=== PATIENT | male | born 1965 | race Caucasian/White ===

== ENCOUNTER 2023-04-27 09:09 | Outpatient (OUT) | payer OTHER, SELFPAY ==
--- NOTE | 2023-04-27 09:12 | CT_ITS ---
The [address] [address] Patient Name: CHRISTOPHER ONEAL MRN: [id number] date: 1965 Sex: M Assigned Patient Location: CT Current Patient Location: Accession/Order Number: [id number] Exam Date: 04/27/2023 09:45 Report Date: 04/28/2023 00:35 At the request of: KASSIDY LI Procedure: CT shoulder RT wo con EXAMINATION: CT shoulder RT wo con HISTORY: Polymyalgia Rheumatica M35.3 ; chronic posterior right shoulder pain COMPARISON: No relevant comparison available. TECHNIQUE: Multi-planar CT images were created without and/or with IV contrast according to examination type. Dose reduction techniques were achieved by using automated exposure control and/or adjustment of mA and/or kV according to patient size and/or use of iterative reconstruction technique. FINDINGS: BONES: Normal. No significant arthropathy or acute abnormality. SOFT TISSUES: Negative. No visible soft tissue swelling. EFFUSION: None visible. OTHER: Negative. CT/CT shoulder RT wo con IMPRESSION: 1. No abnormal or suspicious findings to account for patient's symptoms. Electronically authenticated by: CASSIE LACY Date: 04/28/2023 00:35
--- NOTE | 2023-04-27 09:13 | CT_ITS ---
[address] [address] Patient Name: CHRISTOPHER ONEAL MRN: [id number] date: 1965 Sex: M Assigned Patient Location: CT Current Patient Location: CT Accession/Order Number: [id number] Exam Date: 04/27/2023 09:45 Report Date: 04/27/2023 16:27 At the request of: KASSIDY LI Procedure: CT cervical spine wo con EXAM: CT cervical spine without contrast, 04/27/2023. HISTORY: Neck pain. Right shoulder pain. COMPARISON: None. TECHNIQUE: Noncontrast axial CT images obtained through the cervical spine. Reconstructions were obtained in the sagittal and coronal planes. Dose reduction techniques were achieved by using automated exposure control and/or adjustment of mA and/or kV according to patient size and/or use of iterative reconstruction technique. FINDINGS: Normal alignment. 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 No evidence of fractures. No suspicious osseous lesions. C2-3, there is developmental fusion of the C2 and C3 vertebrae. There is no significant spinal stenosis or foraminal narrowing. C3-4, disc space is normal in height. Moderate facet arthropathy on the left. Mild facet arthropathy on the right. Mild disc bulge. No significant spinal stenosis. There is severe foraminal narrowing bilaterally. C4-5, severe facet arthropathy on the right and moderate facet arthropathy on the left. The disc space is normal in height. Mild spinal canal stenosis. Moderate bilateral foraminal narrowing. C5-6, the disc space is normal in height. There is a shallow broad-based right paracentral protrusion with mild spinal stenosis on the right side of the spinal canal. Mild bilateral foraminal narrowing. C6-7, no spinal stenosis or significant neural foraminal narrowing. C7-T1, no spinal stenosis or foraminal narrowing. No paraspinal soft tissue swelling. No paraspinal mass. CT/CT cervical spine wo con IMPRESSION: 1. At C5-6, there is a shallow broad-based right paracentral protrusion resulting in mild spinal stenosis or right side of the spinal canal. Mild foraminal narrowing bilaterally. 2. At C4-5, there are severe facet arthropathy on the right and moderate facet arthropathy on the left. Mild spinal canal stenosis. Moderate bilateral foraminal narrowing. 3. At C3-4, there is severe bilateral neural foraminal narrowing. Electronically authenticated by: MARÍA ELENA HEARN Date: 04/27/2023 16:27
== END 2023-04-27 09:10 | disposition home or self-care (01) ==
LOC: CT 09:09
PROVIDERS: PCP Family Medicine; Visit Provider Nurse Practitioner Family
DX: M35.3 Polymyalgia rheumatica (principal); M25.511 Pain in right shoulder; M54.2 Cervicalgia
CPT/HCPCS: 72125; 73200

== ENCOUNTER 2023-06-26 14:14 | Outpatient (OUT) | payer OTHER, SELFPAY ==
--- NOTE | 2023-06-26 | CONS_ITS ---
CONSULTATION DATE: 06/26/2023 TO: Alma Rosa Gutierrez M.D. CHIEF COMPLAINT: Includes right shoulder pain, right upper back pain. HISTORY: Overall, rates the pain to be between 0-7/10 pain, described as sharp, intermittent pain, increased with activities such as lifting maneuvers, pushing/pulling maneuvers. Denies any change in bowel and bladder habits or new sensorimotor changes in the upper or lower extremities. Currently takes no medications and reports currently his pain has been under control over the last several weeks. He is currently in physical therapy, has tried a Medrol Dosepak. EXAM: His examination is notable for patient having mild hypoesthesia along the right C4 dermatome, mild weakness to right shoulder shrug. Patient also had dysesthesia and hyperesthesia along the distribution of the right T5 dermatome with significant myofascial spasm of the right thoracic iliocostalis muscle. IMPRESSION: Our impression is patient appears to have chronic pain, which appears to be stable at the current time, secondary to right T5 thoracic neuritis which is stable, right C4 radiculopathy also which is stable, secondary to possible C3-4 displaced disc. RECOMMENDATIONS: I recommend continuation of physical therapy and in the future to consider baclofen. At this current time, I recommend no interventions, and for the patient to return to our office on an as needed basis. As part of providing excellent, safe, comprehensive care, the following was completed at our patient's visit: 1. A medication reconciliation and review to ensure accurate knowledge of current/active medications, including asking our patients to inform us about any [id number] medications or herbal remedies/nutritional supplements/alternative remedies. 2. A review to specifically ensure our patients have had annual screening for: elevated body mass index (BMI, see intake chart for exact total), tobacco use, screening for depression, and screening for unhealthy alcohol use. When screening is concerning, patients are provided with education and the specific recommendation to discuss the concerning health issue and treatment options with their primary care provider. JUNIOR
--- OUTSIDE RECORDS SUMMARY | 2023-06-26 14:34 | XMS_ITS | CCD ---
Author Name Unknown Address [address] [facility] [facility] [address] [place] [address] Organization [facility] Care Team Providers Care Customer Experience Specialist Name Role Phone Dora Pino Unavailable MD Alma Rosa Gutierrez Primary Care Provider LUCY Lepe Attending Provider Beverly Lepe Unavailable Beverly Lepe Attending Unavailable Beverly Lepe Admitting Unavailable Alma Rosa Gutierrez Primary Care Unavailable Alma Rosa Gutierrez MD Primary Care Provider ROBYN LA Attending Unavailable BEVERLY LEPE Referring Unavailable ROBYN LA Attending Unavailable BEVERLY LEPE Referring Unavailable KASSIDY LI Attending Unavailable Allergies Allergy Classification Reported Allergen(s) Allergy Type Date of Onset Reaction(s) Facility (3 sources) Sulfacetamide Sod-Sulfur Drug allergy [facility] Other (3 sources) Sulfanilamide Allergy to substance 3 Unknown [facility] Work Phone: Medications Current Medications Medication Drug Class(es) Dates Sig (Normalized) Sig (Original) lidocaine 0.05 mg/mg medicated patch (2 sources) Antiarrhythmic, Amide Local Anesthetic Start: 06-06-2023 Lidocaine 5 % 1 patch remove after 12 hours Externally Once a day for May, Active predniSONE 10 mg oral tablet (2 sources) Start: 06-06-2023 predniSONE 10 MG Take 3 tablets by mouth for 3 days then 2 tablets by mouth for 3 days then 1 tablet by mouth for 3 days Orally Once a day for May, Active Problems Active Problems Problem Classification Problem Date Documented Da te Episodic/Chronic Other connective tissue disease (3 sources) Polymyalgia rheumatica; Translations: [Polymyalgia rheumatica] Onset: 11-19-2022 11-19-2022 Chronic Other nervous system disorders (2 sources) Chronic pain; Translations: [Other chronic pain] Chronic Other nervous system disorders (2 sources) Other chronic pain Chronic Other non-traumatic joint disorders (2 sources) Pain in right shoulder Episodic Spondylosis; intervertebral disc disorders; other back problems (5 sources) Cervical spondylosis; Translations: [Spondylosis without myelopathy or radiculopathy, cervical region] Chronic Spondylosis; intervertebral disc disorders; other back problems (9 sources) Backache; Translations: [Dorsalgia, unspecified] Onset: 06-06-2023 Episodic Past or Other Problems Problem Classification Problem Date Documented Da te Episodic/Chronic Other connective tissue disease (3 sources) Dupuytren's contracture; Translations: [Palmar fascial fibromatosis [Dupuytren]] Onset: 11-19-2022 11-19-2022 Episodic Unclassified (1 source) Contact with and (suspected) exposure to covid-19; Translations: [Contact with and (suspected) exposure to covid-19] Unclassified (1 source) Contact with and (suspected) exposure to covid-19 Z20.822 Unclassified (2 sources) Exposure to acute respiratory syndrome coronavirus 2; Translations: [Contact with and (suspected) exposure to covid-19] Results Test Name Value Interpretation Reference Range Facil ity XR thoracic spine 3V*on 05-09 XR thoracic spine 3V* [facility] [employer] Other XR thoracic spine 3V* [facility] [employer] Other XR thoracic spine 3V* [address] [facility] [employer] Other XR thoracic spine 3V* [place] [address] [employer] Other XR thoracic spine 3V* XRay Report [employer] Other XR thoracic spine 3V* Signed [employer] Other XR thoracic spine 3V* Patient: Laci Vásquez JR MR#: [id number] [employer] Other XR thoracic spine 3V* 93 [employer] Other XR thoracic spine 3V* : 1965 Acct:[id number] [employer] Other XR thoracic spine 3V* Age/Sex: 58 / M ADM Date: 06/06/23 [employer] Other XR thoracic spine 3V* Loc: XD [facility]: [facility] [employer] Other XR thoracic spine 3V* Attending Dr: Beverly AYALA [employer] Other XR thoracic spine 3V* Copies to: LUCY Stroud [employer] Other XR thoracic spine 3V* Ordering Provider: LUCY Stroud [employer] Other XR thoracic spine 3V* Date of Service: 06/06/23 [employer] Other XR thoracic spine 3V* XR/XR cerv spine AP/LAT/FLX/EXT: M47.812, [employer] Other XR thoracic spine 3V* ([id number]) XR/XR thoracic spine 3V*: M54.6 [employer] Other XR thoracic spine 3V* CERVICAL SPINE 4 views, thoracic spine 3 views: [employer] Other XR thoracic spine 3V* CLINICAL HISTORY: Loss of strength in right arm. Posterior right shoulder pain. [employer] Other XR thoracic spine 3V* COMPARISON: None [employer] Other XR thoracic spine 3V* FINDINGS: [employer] Other XR thoracic spine 3V* Cervical spine: Vertebral body disc space heights appear maintained. Facet joint degenerative [employer] Other XR thoracic spine 3V* changes. No pathological motion on flexion or extension views. No prevertebral soft tissue swelling. [employer] Other XR thoracic spine 3V* Thoracic spine: Vertebral body heights appear maintained. Minimal endplate degenerative change. No [employer] Other XR thoracic spine 3V* significant disc height loss. Pedicles appear intact. [employer] Other XR thoracic spine 3V* XR/XR cerv spine AP/LAT/FLX/EXT [employer] Other XR thoracic spine 3V* IMPRESSION: [employer] Other XR thoracic spine 3V* DEGENERATIVE CHANGES INVOLVING THE CERVICAL AND THORACIC SPINES WITHOUT ACUTE BONY PROCESS. [employer] Other XR thoracic spine 3V* Impression dictated by: Irving Knowles Jr., D.O.06/06/2023 10:39 AM [employer] Other XR thoracic spine 3V* Dictation Location: [place] [address] [employer] Other XR thoracic spine 3V* Transcribed By: PWS 06/06/23 1039 [employer] Other XR thoracic spine 3V* Dictated By: Irving Knowles Jr, DO 06/06/23 1037 [employer] Other XR thoracic spine 3V* Signed By: [employer] Other XR thoracic spine 3V* 06/06/23 1039 [employer] Other XR thoracic spine 3V* [facility] [place] [address] [place] [address] XRay Report Signed Patient: Laci Vásquez JR MR#: [id number] 93 : 1965 Acct:[id number] Age/Sex: 58 / M ADM Date: 06/06/23 Loc: XD Room: Type: [facility] Attending Dr: Beverly TOLBERTC Copies to: LUCY Stroud Ordering Provider: LUCY Stroud Date of Service: 06/06/23 XR/XR cerv spine AP/LAT/FLX/EXT: M47.812, ([id number]) XR/XR thoracic spine 3V*: M54.6 CERVICAL SPINE 4 views, thoracic spine 3 views: CLINICAL HISTORY: Loss of strength in right arm. Posterior right shoulder pain. COMPARISON: None FINDINGS: Cervical spine: Vertebral body disc space heights appear maintained. Facet joint degenerative changes. No pathological motion on flexion or extension views. No prevertebral soft tissue swelling. Thoracic spine: Vertebral body heights appear maintained. Minimal endplate degenerative change. No significant disc height loss. Pedicles appear intact. XR/XR cerv spine AP/LAT/FLX/EXT IMPRESSION: DEGENERATIVE CHANGES INVOLVING THE CERVICAL AND THORACIC SPINES WITHOUT ACUTE BONY PROCESS. Impression dictated by: Irving Knowles Jr., D.O.06/06/2023 10:39 AM Dictation Location: [place] [address] Transcribed By: [facility] 06/06/23 1039 Dictated By: Irving Knowles Jr, DO 06/06/23 1037 Signed By: 06/06/23 1039 [facility] SARS-CoV-2 (COVID-19) RNA NA A+probe Ql (Resp)on 02-05-2022 SARS-CoV-2 (COVID-19) RNA REINA+probe Ql (Unsp spec) Negative [employer] Other Vital Signs Date Time Vital Sign Value Performing Clinician Faci lity 06-06-2023 08:40-0500 Body height 175.26 cm Beverly Lepe Other [facility] 06-06-2023 08:40-0500 Body mass index (BMI) [Ratio] 25.25 kg/m2 Bevrely Lepe Other [employer] Other 06-06-2023 08:40-0500 Body weight 77.57 kg Beverly Lepe Other [employer] Other 06-06-2023 08:40-0500 Body weight 77.56 kg MD Alma Rosa Gutierrez Work Phone: [facility] Encounters Encounter Date Encounter Type Care Provider Facility Start: 06-25-2023 End: 06-25-2023 ambulatory MD Alma Rosa Gutierrez Work Phone: [facility] Work Phone: Start: 06-25-2023 End: 06-25-2023 Patient encounter procedure MD Alma Rosa Gutierrez Work Phone: [facility] [place] Work Phone: Start: 06-21-2023 End: 06-21-2023 ambulatory ROBYN LA Not Available Start: 06-21-2023 Bamboo flowsheet Robyn Morrell Pito kston PT Work Phone: [facility] Start: 06-21-2023 Bamboo flowsheet Robyn Morrell Pito kston PT Work Phone: [facility] Start: 06-19-2023 End: 06-20-2023 ambulatory ROBYN LA Not Available Start: 06-19-2023 End: 06-20-2023 ambulatory Robyn La PT Work Phone: [facility] Comment on above: Spondylosis without myelopathy or radiculopathy, cervical region (Primary Dx) Start: 06-19-2023 Bamboo flowsheet Robyn Morrell Pito kston PT Work Phone: [facility] Start: 06-19-2023 Bamboo flowsheet Robyn Morrell Pito kston PT Work Phone: [facility] Start: 06-06-2023 Office outpatient ne w 45 minutes Beverly Lepe [facility] Start: 06-06-2023 End: 06-06-2023 ambulatory Beverly Lepe Facility:[facility] Start: 06-06-2023 End: 06-06-2023 ambulatory MD Alma Rosa Gutierrez Work Phone: [facility] Work Phone: Start: 06-06-2023 End: 06-06-2023 Patient encounter procedure MD Alma Rosa Gutierrez Work Phone: [facility] Work Phone: Start: 06-06-2023 End: 06-06-2023 Patient encounter procedure MD Alma Rosa Gutierrez Work Phone: [facility]- Start: 04-19-2023 End: 04-19-2023 ambulatory KASSIDY LI Not Available Start: 01-29-2023 Patient encounter status Robyn La PT Work Phone: [facility] Work Phone: Start: 02-05-2022 End: 02-05-2022 ambulatory Dora Pino Other [employer] Other Start: 02-05-2022 Nursing evaluation o f patient and report Dora Pino [facility] [place] Procedures Date Procedure Procedure Detail Performing Clinician Start: 06-06-2023 Radiography of thora cic spine MD Alma Rosa Gutierrez Work Phone: Start: 06-06-2023 X-ray of cervical spine MD Alma Rosa Gutierrez Work Phone: Start: 03-02-2014 Colonoscopy Robyn linn PT Work Phone: Plan of Treatment Date Care Activity Detail Author Start: 03-02-2024 Screening for malign ant neoplasm of colon [facility] Start: 01-14-2024 End: 01-14-2024 Patient encounter procedure 01/14/2024 8:30 AM EDT Office Visit [facility] [address] [place] [address] Adeola España APRN-PARTNER [address] [place] [address] [facility] Start: 11-04-2023 Influenza vaccination Influenza Vacc ine (#1) [facility] Comment on above: Postponed from 01/05 (Patient Refused) Start: 07-05-2023 End: 07-05-2023 ambulatory [facility] Start: 07-02-2023 End: 07-02-2023 ambulatory 07/02/2023 3:30 PM EST Treatment [facility] [address] [place] [address] Delaney Harris, OVERLOCK WAISTLINE JOINER [facility] Start: 06-28-2023 End: 06-28-2023 ambulatory 06/28/2023 3:30 PM EST Treatment [facility] [address] [place] [address] Jorge Rodney, OVERLOCK WAISTLINE JOINER [facility] Start: 06-25-2023 MR Cervical spine WO contrast [facility] Start: 06-25-2023 MRI of cervical spin e without contrast MR cervical spine wo con [facility] Start: 06-21-2023 End: 06-21-2023 ambulatory [facility] Comment on above: Arrived Start: 06-19-2023 End: 06-19-2023 ambulatory 06/19/2023 3:30 PM EST Evaluation [facility] [address] [facility] [address] [place] [address] Robyn La, PT [address] [place] [address] Arrived [facility] Comment on above: Arrived Start: 1965 Screening for malign ant neoplasm of colon [facility] Payers Date Payer Category Payer Self-pay [id number] 2023 Unknown [employer] [id number] 2023-Present [phone] [address] [address] [place] [address] [id number] 2022 Unknown [id number] 1965 Unknown [id number] 58 1965 Unknown [id number] 58 1965 Unknown [id number] 58 Unknown [id number] Unknown [id number] 1 Social History Date Type Detail Facility Unknown if ever smoked [employer] Other Start: 01-23-2023 End: 04-18-2023 Sex Assigned At [facility] Start: 1965 Sex Assigned At Male [facility] Start: 11-20-2022 Tobacco smoking status [facility] Never smoked tobacco [facility] Work Phone: Start: 11-20-2022 Tobacco use and exposure Smokeless tobacco non-user [facility] Start: 04-19-2023 Alcohol intake Lifetime non-drinker (finding) [facility] Start: 01-23-2023 End: 04-18-2023 History of Social function [facility] Within the last year , have you been afraid of your partner or ex-partner? No [facility] Do you belong to any clubs or organizations such as caodaism groups, unions, fraternal or athletic groups, or school groups? Patient refused [facility] Are you now , , , , never or living with a partner? [facility] How often to you hav e a drink containing alcohol? Never [facility] Do you feel stress - tense, restless, nervous, or anxious, or unable to sleep at night because your mind is troubled all the time - these days [OSQ] Not at all [facility] (I/We) worried wheth er (my/our) food would run out before (I/we) got money to buy more. Never true [facility] Start: 11-20-2022 Alcohol Comment Caffeine intake : soda / coffee [facility] Start: 10-04-2022 Gender identity Identifies as male gender (finding) [facility] Start: 10-04-2022 Sexual orientation Heterosexual (finding) [facility] History of Present illness Narrative 06-19-2023 Robyn La, PT - 06/19/2023 3:30 PM EST Note Date & Type Note Facility 06-19-2023 History of Presen t illness Narrative Physical Therapy Physical Therapy Evaluation Visit Patient Name: Laci Vásquez Today's Date: 06/19/2023 Encounter Diagnoses Name Primary? Spondylosis without myelopathy or radiculopathy, cervical region Yes Visit number: 1 Supervised Time: 50 minutes Total Time: 50 minutes History: Pt. Presents to PT with c/c right scapular pain. In 2009 patient felt a pop in scapular muscle and continued to have on/off pain. Since patient has tried PT 2x, massage treatment, chiropractor which has not help. No injections. Denies N/T in UE. Pt. Reports everybody is saying it is coming from his neck but he has no neck pain. Pain is at his scapula border and under his scapula. Pain limits is functional mobility and is unable to workout. X-ray in patient chart. Will have MRI on 06/25/23. Pt. Has pain management appointment tomorrow. Precautions: as tolerated Subjective/Pain: 1-2/10 agitation pain Objective: PT Evaluation (06/19/23) Neck ROM: flexion normal, extension 25% limited, right rotation 50 deg, left rotation 40 deg, Right SB 20 deg, Left SB 15 deg. Shoulder ROM: normal ROM in all planes Strength: right 4+/5 shoulder flx/abd/ER, left 5/5; slight strength difference Labor And Delivery Nurse: right 85#, left 85# Flexibility: moderate upper trapezius bilateral Goals: To be met by 4 weeks 1) Pt. Will report of 0/10 right scapular pain while lift/carry objects to help improve his functional mobility and return to prior of function. 2) Pt. Will demonstrate normal right rhomboid muscle flexibility to help decrease pain and muscle tightness to help improve his quality of life. 3) Pt. Will demonstrate normal functional neck ROM grossly in all planes to help decrease pain and improve his functional mobility. 4) Pt will demonstrate normal right upper trapezius muscle flexibility to help decrease pain and improve his functional mobility. TREATMENT: PT evaluation (30 minutes) Manual: prone: DN to right rhomboid 4x needles with 10 minutes Therapeutic Exercise: Therapeutic Activity: Neuromuscular Re-education: Modalities: e-stim Assessment: The patient has participated in 1 outpatient PT sessions since start of care on 06/19/23. Plan: If DN treatment helped to decreased PT will continue with treatment but no progress. PT will wait to continue treatment until after his MRI. Pt. Was instructed to call Dr. Rosas's office to review MRI results with him. Pt. Was instructed to call office to see if DN tx helped tomorrow. I hereby deem this POC medically necessary. Please sign below and fax back to the number below. Physician Signature: Date: documented in this encounter [facility] Evaluation note 06-06-2023 Note Date & Type Note Facility 06-06-2023 Evaluation note Encounter Date Diagnosis Assessment Notes May, Cervical spondylosis (ICD-10 - M47.812) I independently reviewed the CT scan face to face with patient in which shows a broad base right protrusion at C5-C6, resulting in mild spinal stenosis on the right side of the spinal canal; mild foramen narrowing bilaterally at C4-5; Moderate right and moderate left facet atrophy at C3-4, with mild spinal canal stenosis and moderate bilateral foramen narrowing. May, Cervical spinal stenosis (ICD-10 - M48.02) May, Dorsal back pain (ICD-10 - M54.9) 1. Neck, right shoulder and scapula pain- History of pain for 14 years, aggravated by heavy lifting- CT scan shows mild spinal stenosis at C5-C6, mild foramen narrowing bilaterally at C4-5, moderate right and moderate left facet atrophy at C3-4, mild spinal canal stenosis, and moderate bilateral foramen narrowing at C3-4- Plan: Order MRI to determine interventional procedures, Order x-ray of cervical spine (flexion and extension) to rule out hypermobility and xray of thoracic spine. Refer to physical therapy at [facility] Refer to pain management with Dr. Duarte in [place]. Prescribe lidocaine patch 5% for targeted pain relief. consider [id number] 4% lidocaine patch if insurance does not cover the prescription. Schedule follow-up appointment in 8 weeks 2. Inflammatory symptoms in shoulders and hips- Previous response to prednisone taper dose- Plan: Prescribe 9-day prednisone taper dose. Advise against taking ibuprofen while on prednisone. Recommend Tylenol arthritis as an alternative pain reliever during prednisone treatment 3. Overall health and functional goals- Patient desires to maintain and improve physical fitness and functional abilities- Plan: Encourage continued engagement in appropriate physical activities and exercise. Monitor progress and address any concerns during follow-up appointments. May, Pain in right shoulder (ICD-10 - M25.511) May, Other chronic pain (ICD-10 - G89.29) May, Other Medical decision making shows a new problem to me with further workup planned or suggested with the potential for extensive treatment options that were considered with the most applicable given this patient's situation as noted above. Treatment options considered include a combination of physical therapy approaches, pharmacologic management, and interventional procedures. Those most applicable to the patient were discussed at this time. Risk of complications and/or morbidity and mortality is high given that acute and chronic pain poses a threat to life and bodily function if undertreated, poorly treated or with failure to maintain adequate treatment and timely follow up. Given the serious and fluctuating nature of pain with extensive consideration for whenever pain changes, there always remains the possibility of prolonged functional impairment requiring constant patient reassessment and high-level medical decision making. The amount and complexity of data reviewed is moderate given that patient labs, radiology reports, and other test were obtained, reviewed and summarized as applicable from the physician portal and/or outside medical records. Pertinent positive and negative findings were considered in medical decision-making. OARRS reviewed. [employer] Other Evaluation note 02-05-2022 Note Date & Type Note Facility 02-05-2022 Evaluation note Encounter Date Diagnosis Assessment Notes Feb, Contact with and (suspected) exposure to covid-19 (ICD-10 - Z20.822) [employer] Other Evaluation note Note Date & Type Note Facility Evaluation note No assessment information availa [facility] Work Phone: Evaluation note Note Date & Type Note Facility Evaluation note Diagnosis Spondylosis without myelopathy or radiculopathy, cervical region- Primary documented in this encounter [facility] History general Narrative - Reported Note Date & Type Note Facility History general Narrative - Reported Type Surgical History knee arthroscopy b/l [facility] Other History general Narrative - Reported Note Date & Type Note Facility History general Narrative - Reported Type Surgical History knee arthroscopy b/l Hospitalization History see above [employer] Other Chief Complaint and Reason for Visit Chief Complaint M54.6 M47.81 Chief Complaint Referred By Kassidy long Neck Pain M54.6 M47.81 m47.812 Advance Directives Advance Directive Response Recorded Date/ Time Advance Directives No April 8:42am Reason for Referral Reason *FU 06/14 evaluate and treat Diagnosis 1 Cervical spondylosis (M47.812) Referral Organization [facility] Referring Provider First Name Beverly Referring Provider Last Name Lepe Referring Provider Specialty Nurse Pract itioner Referred Organization [facility] Referred Provider July Wallace Referred Address [address] [place], [place],[address] Referred Provider Specialty Pain Medicin e Referral Priority Routine General Notes Beckie Plascencia 12:39:15 PM >received and sending referral at this time for scheduling Reason Evaluate and treat Diagnosis 1 Cervical spondylosis (M47.812) Referral Organization [facility] Referring Provider First Name Beverly Referring Provider Last Name Lepe Referring Provider Specialty Nurse Pract itioner Referred Organization [facility] Referred Address [address] [facility],[address] Referred Provider Specialty Physical The rapist Referral Priority Routine Summary Purpose Family History Relationship Condition Age at Onset Recorded Date/T melissa Not Specified Heart disease Unknown Additional Source Comments REASON FOR VISIT (unrecogniz ed section and content) Specialty Diagnoses / Procedures Referred By Olinda morrell Referred To Contact Physical Therapy Diagnoses Spondylosis without myelopathy or radiculopathy, cervical region Procedures [place] PHYSICAL THERAPY EVALUATION LOW COMPLEX 20 MINS Beverly Lepe MD [address] [facility] [address] [place] [address] Bessie Robyn T, PT [address] [facility] [address] [place] [address] Referral ID Status Reason Start Date Expiration Date V isits Requested Visits Authorized [id number] Authorized 06/08/2023 12/05/2023 20 20 Care Teams (unrecognized sec tion and content) Team Status: Active Member Role Status Dates Alma Rosa Gutierrez MD Primary Care Provider Active Team Status: Inactive Member Role Status Dates Alma Rosa Gutierrez MD Primary Care Provider Active S tart: June 06, 2023 End: June 06, 2023 LUCY Ferrara Attending Provider Active Start: June 06, 2023 End: June 06, 2023 Customer Experience Specialist Relationship Specialty Start Date End Date Alma Rosa Gutierrez MD [address] [facility] [address] [place] [address] PCP - General Family Medicine 11/20/22 Customer Experience Specialist Relationship Specialty Start Date End Date Alma Rosa Gutierrez MD [address] [facility] [address] [place] [address] PCP - General Family Medicine 11/20/22 Customer Experience Specialist Relationship Specialty Start Date End Date Alma Rosa Gutierrez MD [address] [facility] [address] [place] [address] PCP - General Family Medicine 11/20/22 Team Status: Inactive Member Role Status Dates LUCY Ferrara Attending Provider Active Start: June 06, 2023 End: June 06, 2023 Team Status: Inactive Member Role Status Dates Alma Rosa Gutierrez MD Primary Care Provider Active S tart: June 25, 2023 End: June 25, 2023 Beverly Lepe , CAR WASH ATTENDANT-C Attending Provider Active Start: June 25, 2023 End: June 25, 2023 Goals (unrecognized section and content) Goals may be documented in a n alternate section (unrecognized sect ion and content) No Status Records FoundNo Status Records Found INFORMATION SOURCE (unrecogn ized section and content) DATE CREATED AUTHOR 06/15/2023 [facility] DATE CREATED AUTHOR AUTHOR'S GENE CUMMINGS 06/23/2023 [facility] dical Specialists [facility] FOR RECORDS PERTAINING TO PATIENTS WHO ARE OR HAVE BEEN ENROLLED IN A CHEMICAL DEPENDENCY/SUBSTANCEABUSE PROGRAM, SOME INFORMATION MAY BE OMITTED. This clinical summary was aggregated from multiple sources. Caution should be exercised in using it in the provision of clinical care. This summary normalizes information from multiple sources, and as a consequence, information in this document may materially change the coding, format and clinical context of patient data. In addition, data may be omitted in some cases. CLINICAL DECISIONS SHOULD BE BASED ON THE PRIMARY CLINICAL RECORDS. [facility] [employer] [facility]. provides no warranty or guarantee of the accuracy or completeness of information in this document.
== END 2023-06-26 14:15 | disposition home or self-care (01) ==
LOC: PM 14:14
PROVIDERS: PCP Family Medicine; Visit Provider Anesthesiology Pain Medicine
DX: M54.14 Radiculopathy, thoracic region (principal); M54.12 Radiculopathy, cervical region
CPT/HCPCS: G0463

== ENCOUNTER 2024-01-26 06:26 | Outpatient (OUT) | payer OTHER, SELFPAY ==
--- OUTSIDE RECORDS SUMMARY | 2024-01-26 06:28 | XMS_ITS | CCD ---
Author Organization [facility] ion [facility] Care Team Providers Care Journal Entry Audit Clerk Name Role Phone Dora Pino Unavailable MD Alma Rosa Baxter Primary Care Provider LUCY Lepe Attending Provider Beverly Lepe Unavailable Alma Rosa Baxter MD Primary Care Provider Alma Rosa Baxter Primary Care Unavailable Beverly Lepe Attending Unavailable Beverly Lepe Admitting Unavailable Beverly Lepe Attending Unavailable Beverly Lepe Admitting Unavailable Alma Rosa Baxter Primary Care Unavailable ROBYN LA Attending Unavailable BEVERLY LEPE Referring Unavailable ROBYN LA Attending Unavailable BEVERLY LEPE Referring Unavailable BRUCE DORMAN Attending Unavailable MAGNO HARRIS Attending Unavailable BEVERLY LEPE Referring Unavailable BRUCE DORMAN Attending Unavailable BEVERLY LEPE Referring Unavailable ALMA ROSA BAXTER Attending Unavailable KASSIDY LI Attending Unavailable Allergies Allergy Classification Reported Allergen(s) Allergy Type Date of Onset Reaction(s) Facility (3 sources) Sulf[facility]amide [facility] Other (3 sources) Sulfanilamide Allergy to substance 3 Unknown [facility] Work Phone: (1 source) Sulfacetamide Drug Allergy 4 [facility] Repository Medications Current Medications Medication Drug Class(es) Dates Sig (Normalized) Sig (Original) lidocaine 0.05 mg/mg medicated patch (2 sources) Antiarrhythmic, Amide Local Anesthetic Start: 06-06-2023 Lidocaine 5 % 1 patch remove after 12 hours Externally Once a day for May,4 Active predniSONE 10 mg oral tablet (2 [...] Name Value Interpretation Reference Range Facil ity MR cervical spine wo conon 0 06-26-2023 MR cervical spine wo con [facility] Main [address] [address] MRI Report Signed Patient: Laci Vásquez JR MR#: [id number] 93 : 1965 Acct:[id number] Age/Sex: 58 / M ADM Date: 06/25/23 Loc: MR Room: Type: DEP CLI Attending Dr: Beverly AYALA Copies to: LUCY Stroud Ordering Provider: LUCY Stroud Date of Service: 06/25/23 MR/MR cervical spine wo con: M47.812 MR cervical spine wo con 06/25/2023 7:28 PM SIGNS AND SYMPTOMS: Right scapula pain with right arm weakness PROTOCOL: Multiplanar multisequence MR images of the cervical spine were obtained without IV contrast. COMPARISON: 04/25/2023 FINDINGS: The bones of the cervical spine are in anatomic alignment. There is preservation of vertebral body heights. 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 There is minimal disc height loss at C4-C5 and C5-6. The marrow signal is within normal limits. The cord is normal in signal. No epidural or paraspinous fluid collection is appreciated. The visualized paraspinous soft tissues are within normal limits. The prevertebral soft tissues are within normal limits. At C2-C3: There is a rudimentary C2-C3 disc. There is left-sided uncovertebral joint spurring contributing to mild left neural foraminal narrowing. At C3-C4: There is a broad-based disc bulge with facet and operative joint degenerative change contributing to moderate left and severe right neural foraminal narrowing with mild spinal canal narrowing. At C4-C5: There is a broad-based disc bulge with facet injection change. There is moderate left and moderate neural foraminal narrowing with mild spinal canal. At C5-C6: There is a broad-based disc bulge with facet degenerative change contributing to moderate spinal canal stenosis and moderate bilateral neural foraminal. At C6-C7: There is left-sided facet hypertrophy contributing to mild left neural foraminal narrowing. At C7-T1: There is a normal disc, central canal, and neural foramen. MR/MR cervical spine wo con IMPRESSION: No cord compression or cord signal abnormality. At C3-C4: There is a broad-based disc bulge with facet and operative joint degenerative change contributing to moderate left and severe right neural foraminal narrowing with mild spinal canal narrowing. At C4-C5: There is a broad-based disc bulge with facet injection change. There is moderate left and moderate neural foraminal narrowing with mild spinal canal. At C5-C6: There is a broad-based disc bulge with facet degenerative change contributing to moderate spinal canal stenosis and moderate bilateral neural foraminal. Impression dictated by: Leodan Walker M.D.06/26/2023 12:57 PM Dictation Location: [place] [address] Transcribed By: JACINDA 06/26/23 1257 Dictated By: Leodan Walker II, MD 06/26/23 1253 Signed By: 06/26/23 1257 Normal [facility] XR thoracic spine 3V*on 05-09 XR thoracic spine 3V* [facility] Other XR thoracic spine 3V* [facility] Other XR thoracic spine 3V* [address] [place] [address] [facility] Other XR thoracic spine 3V* [place] [id number] [facility] Other XR thoracic spine 3V* XRay Report [facility] Other XR thoracic spine 3V* Signed [facility] Other XR thoracic spine 3V* Patient: Laci Vásquez JR MR#: [id number] [facility] Other XR thoracic spine 3V* 93 [facility] Other XR thoracic spine 3V* : 1965 Acct:[id number] [facility] Other XR thoracic spine 3V* Age/Sex: 58 / M ADM Date: 06/06/23 [facility] Other XR thoracic spine 3V* Loc: XD Room: Type: [facility] Other XR thoracic spine 3V* Attending Dr: Beverly AYALA [facility] Other XR thoracic spine 3V* Copies to: LUCY Stroud [facility] Other XR thoracic spine 3V* Ordering Provider: LUCY Stroud [facility] Other XR thoracic spine 3V* Date of Service: 06/06/23 [facility] Other XR thoracic spine 3V* XR/XR cerv spine AP/LAT/FLX/EXT: M47.812, [facility] Other XR thoracic spine 3V* ([id number]) XR/XR thoracic spine 3V*: M54.6 [facility] Other XR thoracic spine 3V* CERVICAL SPINE 4 views, thoracic spine 3 views: [facility] Other XR thoracic spine 3V* CLINICAL HISTORY: Loss of strength in right arm. Posterior right shoulder pain. [facility] Other XR thoracic spine 3V* COMPARISON: None [facility] Other XR thoracic spine 3V* FINDINGS: [facility] Other XR thoracic spine 3V* Cervical spine: Vertebral body disc space heights appear maintained. Facet joint degenerative [facility] Other XR thoracic spine 3V* changes. No pathological motion on flexion or extension views. No prevertebral soft tissue swelling. [facility] Other XR thoracic spine 3V* Thoracic spine: Vertebral body heights appear maintained. Minimal endplate degenerative change. No [facility] Other XR thoracic spine 3V* significant disc height loss. Pedicles appear intact. [facility] Other XR thoracic spine 3V* XR/XR cerv spine AP/LAT/FLX/EXT [facility] Other XR thoracic spine 3V* IMPRESSION: [facility] Other XR thoracic spine 3V* DEGENERATIVE CHANGES INVOLVING THE CERVICAL AND THORACIC SPINES WITHOUT ACUTE BONY PROCESS. [facility] Other XR thoracic spine 3V* Impression dictated by: Irving Knowles Jr., D.OJeffrey06/06/2023 10:39 AM [facility] Other XR thoracic spine 3V* Dictation Location: [employer]-12 [facility] Other XR thoracic spine 3V* Transcribed By: JACINDA 06/06/23 1039 [facility] Other XR thoracic spine 3V* Dictated By: Irving Knowles Jr, DO 06/06/23 1037 [facility] Other XR thoracic spine 3V* Signed By: [facility] Other XR thoracic spine 3V* 06/06/23 1034 [facility] Other XR thoracic spine 3V* [facility] Main [place] [address] [place] [address] XRay Report Signed Patient: Laci Vásquez JR MR#: [id number] 93 : 1965 Acct:[id number] Age/Sex: 58 / M ADM Date: 06/06/23 Loc: XD Room: Type: [facility] Attending Dr: Beverly TOLBERTC Copies to: LUCY Stroud Ordering Provider: LUCY Stroud Date of Service: 06/06/23 XR/XR cerv spine AP/LAT/FLX/EXT: M47.812, ([id number]) XR/XR thoracic spine 3V*: M54.6 CERVICAL SPINE [...] PROCESS. Impression dictated by: Irving Knowles Jr., D.OJeffrey06/06/2023 10:39 AM Dictation Location: [employer]-12 Transcribed By: JACINDA 06/06/23 1039 Dictated By: Irving Knowles Jr, DO 06/06/23 1037 Signed By: 06/06/23 1039 Normal [facility] SARS-CoV-2 (COVID-19) RNA NA A+probe Ql (Resp)on 02-05-2022 SARS-CoV-2 (COVID-19) RNA REINA+probe Ql (Unsp spec) Negative [facility] [employer] Other Vital Signs Date Time Vital Sign Value Performing Clinician Faci lity 06-06-2023 08:40-0500 Body height 175.26 cm Beverly Lepe Other [facility] 06-06-2023 08:40-0500 Body mass index (BMI) [Ratio] 25.25 kg/m2 [email or web address] Other [facility] [employer] Other 06-06-2023 08:40-0500 Body weight 77.57 kg [email or web address] Other [facility] Other 06-06-2023 08:40-0500 Body weight 77.56 kg MD Alma Rosa Baxter Work Phone: [facility] Encounters Encounter Date Encounter Type Care Provider Facility Start: 01-21-2024 End: 01-21-2024 ambulatory ALMA ROSA BAXTER Not Available Start: 07-05-2023 End: 07-05-2023 ambulatory BRUCE DORMAN Not Available Start: 07-02-2023 End: 07-02-2023 ambulatory MAGNO HARRIS Not Available Start: 06-28-2023 End: 06-28-2023 ambulatory BRUCE DORMAN Not Available Start: 06-25-2023 End: 06-25-2023 ambulatory Alma Rosa Baxter Facility:[facility] Start: 06-25-2023 End: 06-25-2023 ambulatory MD Alma Rosa Baxter Work Phone: [facility] Work Phone: Start: 06-25-2023 End: 06-25-2023 Patient encounter procedure MD Alma Rosa Baxter Work Phone: [facility] Main [place] Work Phone: Start: 06-21-2023 End: 06-21-2023 ambulatory ROBYN LA Not Available Start: 06-21-2023 Bamboo flowsheet Robyn lovelaceton PT Work Phone: [facility] Start: 06-21-2023 Bamboo flowsheet Robyn Morrell Pito kston PT Work Phone: [facility] Start: 06-19-2023 End: 06-20-2023 ambulatory Robynisaak La PT Work Phone: [facility] Comment on above: Spondylosis without myelopathy or radiculopathy, cervical region (Primary Dx) Start: 06-19-2023 Bamboo flowsheet Robyn Stewartc kston PT Work Phone: [facility] Start: 06-19-2023 Bamboo flowsheet Robyn Morrell Pito kston PT Work Phone: [facility] Start: 06-06-2023 Office outpatient ne w 45 minutes Beverly Lepe [facility] Start: 06-06-2023 End: 06-06-2023 ambulatory Beverly Lepe Facility:[facility] Start: 06-06-2023 End: 06-06-2023 ambulatory MD Alma Rosa Baxter Work Phone: [facility] Work Phone: Start: 06-06-2023 End: 06-06-2023 Patient encounter procedure MD Alma Rosa Baxter Work Phone: [facility] Main [place] Work Phone: Start: 06-06-2023 End: 06-06-2023 Patient encounter procedure MD Alma Rosa Baxter Work Phone: [facility] Start: 04-19-2023 End: 04-19-2023 ambulatory KASSIDY LI Not Available Start: 01-29-2023 Patient encounter status Robyn La PT Work Phone: [facility] Work Phone: Start: 02-05-2022 End: 02-05-2022 ambulatory Dora Pino Other [employer] Other Start: 02-05-2022 Nursing evaluation o f patient and report Dora Pino [facility] [place] Procedures Date Procedure Procedure Detail Performing Clinician Start: 06-06-2023 Radiography of thora cic spine MD Alma Rosa Baxter Work Phone: Start: 06-06-2023 X-ray of cervical spine MD Alma Rosa Baxter Work Phone: Start: 03-02-2014 Colonoscopy Robyn Terry portillofrancia PT Work Phone: Plan of Treatment Date Care Activity Detail Author Start: 03-02-2024 Screening for malign ant neoplasm of colon [facility] Start: 01-14-2024 End: 01-14-2024 Patient encounter procedure 01/14/2024 8:30 AM EDT Office Visit [facility] [address] [place] [address] Adeola España, MAINTENANCE FOREMAN-TIP OUT WORKER [address] [place], [place] [id number] [facility] Start: 11-04-2023 Influenza vaccination Influenza Vacc ine (#1) [facility] Comment on above: Postponed from 01/05 (Patient Refused) Start: 07-05-2023 End: 07-05-2023 ambulatory [facility] Start: 07-02-2023 End: 07-02-2023 ambulatory 07/02/2023 3:30 PM EST Treatment [facility] [address] [place] [id number] Magno Harris, MEG [facility] Start: 06-28-2023 End: 06-28-2023 ambulatory 06/28/2023 3:30 PM EST Treatment [facility] [address] [place] [address] Bruce Dorman, MEG [facility] Start: 06-25-2023 MR Cervical spine WO contrast [facility] Start: 06-25-2023 MRI of cervical spin e without contrast MR cervical spine wo con [facility] Start: 06-21-2023 End: 06-21-2023 ambulatory [facility] Comment on above: Arrived Start: 06-19-2023 End: 06-19-2023 ambulatory 06/19/2023 3:30 PM EST Evaluation [facility] [address] [place] [address] Robyn La, PT [address] [place] [address] Arrived [facility] Comment on above: Arrived Start: 1965 Screening for malign ant neoplasm of colon [facility] Payers Date Payer Category Payer Self-pay [id number] 2023 Unknown [employer] [id number] 2023-Present [phone] [address] [address] [place] [address] [id number] 2022 Unknown [id number] 1965 Unknown [id number] 58 1965 Unknown [id number] [id number] 59 1965 Unknown [id number] [id number] 59 1965 Unknown [id number] [id number] 59 1965 Unknown [id number] [id number] 59 1965 Unknown [id number] [id number] 59 1965 Unknown [id number] [id number] 58 Unknown [id number] [id number] Unknown [id number] [id number] 1 Unknown [id number] [id number] 1 Social History Date Type Detail Facility Unknown if ever smoked [facility] Other Start: 01-23-2023 End: 04-18-2023 Sex Assigned At [facility] Start: 1965 Sex Assigned At Male [facility] Start: 11-20-2022 Tobacco smoking status [facility] Never smoked tobacco [facility] Work Phone: [...] to any clubs or organizations such as spiritism groups, unions, fraternal or athletic groups, or [...] got money to buy more. Never true [facility] Start: 11-20-2022 Alcohol Comment Caffeine intake : soda / coffee [facility] Start: 10-04-2022 Gender identity Identifies as male gender (finding) [facility] Start: 10-04-2022 Sexual orientation Heterosexual (finding) [facility] History of Present illness Narrative 06-19-2023 Robyn La, PT - 06/19/2023 3:30 PM EST Note Date & Type Note Facility 06-19-2023 History of Pressudeep t illness Narrative Physical Therapy Physical Therapy [...] shoulder flx/abd/ER, left 5/5; slight strength difference Senior Education Specialist: right 85#, left 85# Flexibility: moderate upper [...] Physician Signature: Date: documented in this encounter [facility] Evaluation note 06-06-2023 Note Date & Type [...] thoracic spine. Refer to physical therapy at [place] [facility] Refer to pain management with Dr. Duarte in [place]. Prescribe lidocaine patch 5% for targeted pain relief. consider [id number] 4% lidocaine patch if insurance does not [...] were considered in medical decision-making. OARRS reviewed. [facility] Other Evaluation note 02-05-2022 Note Date & Type Note Facility 02-05-2022 Evaluation note Encounter Date Diagnosis Assessment Notes Feb, Contact with and (suspected) exposure to covid-19 (ICD-10 - Z20.822) [facility] Other Evaluation note Note Date & Type Note Facility Evaluation note No assessment information availa [facility] Work Phone: Evaluation note Note Date & Type Note Facility Evaluation note Diagnosis Spondylosis without myelopathy or radiculopathy, cervical region- Primary documented in this encounter [facility] History general Narrative - Reported Note Date & Type Note Facility History general Narrative - Reported Type Surgical History knee arthroscopy b/l [facility] Other History general Narrative - Reported Note Date & Type Note Facility History general Narrative - Reported Type Surgical History knee arthroscopy b/l Hospitalization History see above [facility] Other Chief Complaint and Reason for Visit Chief Complaint M54.6 M47.81 Chief Complaint Referred By Kassidy long Neck Pain M54.6 M47.81 m47.812 Advance Directives No Advanced Directives Records Found Advance Directive Response Recorded Date/ Time Advance Directives No April 8:42am Reason for Referral Reason *FU 06/14 evaluate and treat Diagnosis 1 Cervical spondylosis (M47.812) Referral Organization [facility] Referring Provider First Name Beverly Referring Provider Last Name Sherley Referring Provider Specialty Nurse Pract lester Referred Organization [facility] Referred Provider July Wallace Referred Address [address] [place], [place],[address] Referred Provider Specialty Pain Medicin e Referral Priority Routine General Notes Beckie Plascencia 12:39:15 PM >received and sending referral at this time for scheduling Reason Evaluate and treat Diagnosis 1 Cervical spondylosis (M47.812) Referral Organization [facility] Referring Provider First Name Beverly Referring Provider Last Name Sherley Referring Provider Specialty Nurse Cookie batista Referred Organization [facility] Referred Address [address],[place], [place],[address] Referred Provider Specialty Physical The rapist Referral Priority Routine Summary Purpose Family History No Family History Records Found Additional Source Comments REASON FOR VISIT (unrecogniz ed section and content) Specialty Diagnoses / Procedures Referred By Olinda morrell Referred To Contact Physical Therapy Diagnoses Spondylosis without myelopathy or radiculopathy, cervical region Procedures [place] [facility] EVALUATION LOW COMPLEX 20 MINS Beverly Lepe MD [address] [facility] [address] [place] [address] Robyn La, PT [address] [place] [address] Referral ID Status Reason Start Date Expiration Date V isits Requested Visits Authorized [id number] Authorized 06/08/2023 12/05/2023 20 20 Care Teams (unrecognized sec tion and content) Team Status: Active Member Role Status Dates Alma Rosa Baxter MD Primary Care Provider Active Team Status: Inactive Member Role Status Dates Alma Rosa Baxter MD Primary Care Provider Active S tart: June 06, 2023 End: June 06, 2023 TOMASZ FerraraC Attending Provider Active Start: June 06, 2023 End: June 06, 2023 Journal Entry Audit Clerk Relationship Specialty Start Date End Date Alma Rosa Baxter MD [address] [facility] [address] [place] [address] PCP - General Family Medicine 11/20/22 Journal Entry Audit Clerk Relationship Specialty Start Date End Date Alma Rosa Baxter MD [address] [facility] [address] [place] [address] PCP - General Family Medicine 11/20/22 Journal Entry Audit Clerk Relationship Specialty Start Date End Date Alma Rosa Baxter MD [address] [facility] [address] [place] [address] PCP - General Family Medicine 11/20/22 Team Status: Inactive Member Role Status Dates LUCY Ferrara Attending Provider Active Start: June 06, 2023 End: June 06, 2023 Team Status: Inactive Member Role Status Dates Alma Rosa Baxter MD Primary Care Provider Active S tart: June 25, 2023 End: June 25, 2023 LUCY Ferrara Attending Provider Active Start: June 25, 2023 End: June 25, 2023 Goals (unrecognized section and content) Goals may be documented in a n alternate section (unrecognized sect ion and content) No Status Records FoundNo Status Records Found INFORMATION SOURCE (unrecogn ized section and content) DATE CREATED AUTHOR 06/26/2023 [facility] DATE CREATED AUTHOR AUTHOR'S GENE ATION 01/23/2024 [facility] dical Specialists [employer] FOR RECORDS PERTAINING TO PATIENTS WHO ARE [...] BE BASED ON THE PRIMARY CLINICAL RECORDS. [employer] provides no warranty or guarantee of the accuracy or completeness of information in this document.
[2024-01-26 07:19] LABS: Basophils Percent Auto 0.7 % (0.2-2.0); Eosinophils Absolute Auto 0.4 10^3/uL (0.0-0.7); Eosinophils Percent Auto 6.4 % (0.9-7.0); Hematocrit 45.9 % (42.0-54.0); Immature Granulocytes Abs Auto 0.02 10^3/uL (0.00-0.03); Immature Granulocytes Pct Auto 0.4 % (0.0-0.5); Lymphocytes Absolute Auto 2.2 10^3/uL (1.2-3.8); Mean Corpuscular HGB Conc 34.9 g/dL (29.9-35.2); Mean Corpuscular Hemoglobin 30.9 pg (25.9-34.0); Mean Corpuscular Volume 88.6 fL (80.0-94.0); Mean Platelet Volume 8.9 fL (9.5-13.5); Monocytes Absolute Auto 0.5 10^3/uL (0.3-0.8); Neutrophils Absolute Auto 2.5 10^3/uL (1.4-6.5); Neutrophils Percent Auto 44.5 % (43.0-75.0); Platelet Count 233 10^3/uL (150-450); Red Blood Count 5.18 10^6/uL (4.70-6.10); Red Cell Distribution Width 11.9 % (11.0-15.0); White Blood Count 5.7 10^3/uL (4.0-11.0)
[2024-01-26 07:40] LABS: Alanine Aminotransferase 46 U/L (16-63); Albumin Globulin Ratio 1.3; Albumin Level 3.9 g/dL (3.4-5.0); Alkaline Phosphatase 45 U/L (46-116); Anion Gap 10.3; Aspartate Amino Transferase 29 U/L (15-37); BUN Creatinine Ratio 9.9; Bilirubin Total 0.7 mg/dL (0.2-1.0); Carbon Dioxide 30.9 mmol/L (21.0-32.0); Chloride 102 mmol/L (98-107); Chol HDL Ratio 4.2; Cholesterol 175 mg/dL (<=200); Estimated GFR (African America >60 (>=60); Estimated GFR (Non-African Ame >60 (>=60); Globulin 3.1 g/dL; Glucose 99 mg/dL (74-106); HDL Cholesterol 42 mg/dL (40-60); LDL Cholesterol Calculated 115.2 mg/dL; Potassium 4.2 mmol/L (3.5-5.1); Sodium 139 mmol/L (136-145); Triglycerides 89 mg/dL (<=150); VLDL CHOLESTEROL 17.8 mg/dL
[2024-01-26 07:54] LABS: Prostate Specific Antigen Scrn 0.31 ng/mL (<=4.00)
== END 2024-01-26 06:27 | disposition home or self-care (01) ==
LOC: LAB 06:26
PROVIDERS: PCP Family Medicine; Visit Provider Family Medicine
DX: Z00.00 Encounter for general adult medical examination without abnormal findings (principal); Z13.220 Encounter for screening for lipoid disorders; R35.1 Nocturia
CPT/HCPCS: 36415; 80053; 80061; 85025; G0103